=== PATIENT | female | born 1995 | race Hispanic/Latino ===

== ENCOUNTER 2018-01-15 09:55 | Emergency (ER) | payer MEDICAID, SELFPAY | END 2018-01-15 12:03 | disposition home or self-care (01) | LOC: ERS 09:55 | DX: H10.9 Unspecified conjunctivitis (principal) | CPT/HCPCS: 99282 ==

== ENCOUNTER 2020-05-03 11:10 | Inpatient (IN) | payer OTHER, SELFPAY ==
[2020-05-03] MEDS ORDERED: Ondansetron PF 4 MG/2 ML Vial ONE (11:38)
[2020-05-03] MEDS ORDERED: cefTRIAXone\\ROCEPHIN 2 GM VIAL ONE (11:38)
[2020-05-03] MEDS ORDERED: Ketorolac Tromethamine 30 MG/ML VIAL ONE (11:38)
[2020-05-03 11:57] LABS: #Lymphocytes 1.2 thou/uL (1.20-3.40); #Monocytes 1.2 thou/uL (0.11-0.59); #Neutrophils 13.9 thou/uL (1.40-6.50); %Basophils 0.2 % (0.0-1.0); %Eosinophils 0.2 % (0.0-10.0); %Lymphocytes 7.5 % (21.0-51.0); %Monocytes 7.4 % (0.0-10.0); %Neutrophils 84.8 % (42.0-75.0); Hemoglobin 14.4 g/dL (12.0-16.0); Mean Corpuscular HGB CONC 34.5 g/dL (32.0-36.0); Mean Corpuscular Hemoglobin 32.7 pg (27.0-31.0); Mean Corpuscular Volume 94.6 fL (78.0-98.0); Mean Platelet Volume 7.8 fL (7.4-10.4); Platelet Count 239 thou/uL (130-400); RBC Distribution Width 11.2 % (11.5-14.5); White Blood Cell (WBC) Count 16.3 thou/uL (4.8-10.8)
[2020-05-03] MEDS ORDERED: Iopamidol-370 76% 500 ML 1 ML ONE (12:03)
--- NOTE | 2020-05-03 12:04 | RAD ---
PORTABLE CHEST 1 VIEW: Date: 05/03/2020 Time: 1148 hours HISTORY: Fever. FINDINGS: The heart size is normal. The lungs are well expanded without lobar consolidation, pneumothoraces, or pleural effusions. IMPRESSION: No acute process. POS: AH
[2020-05-03 12:18] LABS: ALT (SGPT) 13 U/L (8-55); AST (SGOT) 11 U/L (5-34); Albumin 4.3 g/dL (3.5-5.0); Alkaline Phosphatase 82 U/L (40-110); Anion Gap 14 mmol/L (10-20); BUN (Urea Nitrogen) 4 mg/dL (7.0-18.7); Bilirubin, Total 1.2 mg/dL (0.2-1.2); Calc. Creatinine Clearance 0 mL/min (70-130); Carbon Dioxide 22 mmol/L (22-29); Chloride 100 mmol/L (98-107); Estimated GFR-MDRD Greater than 90; Globulin 3.2 g/dL (2.4-3.5); Glucose 126 mg/dL (70-105); Potassium 3.4 mmol/L (3.5-5.1); Protein, Total 7.5 g/dL (6.0-8.3); Sodium 133 mmol/L (136-145)
[2020-05-03] MEDS ORDERED: Acetaminophen 500 MG TAB ONE (12:54)
[2020-05-03 13:22] LABS: Bacteria/HPF None Seen HPF (None Seen); Bilirubin Negative (Negative); Blood, Urine Trace (Negative); Clarity Clear (Clear); Glucose, Urine (Dipstick) Normal (Negative); Ketone, Urine 40 mg/dL (Negative); Leukocyte Negative Leu/uL (Negative); Nitrite Negative (Negative); Protein, Urine (Dipstick) Negative (Neg-Trace); Specific Gravity, Urine 1.005 (1.002-1.036); Squamous Epithelial 0-3 HPF (0-3); Urobilinogen Normal mg/dL (Less than 2); pH, Urine 6.5 (5.0-9.0)
[2020-05-03 13:50] LABS: Pregnancy Test - Urine (BHCG) Negative (Negative); Pregu Control Background? CLEAR/WHITE (CLR/WHITE); Pregu Control Bar Appear? YES (CONTROL BAR); Specific Gravity 1.005 (1.002-1.036)
--- NOTE | 2020-05-03 15:14 | CT ---
CT abdomen and pelvis with IV contrast HISTORY: Urinary tract infection. Flank pain. FINDINGS: The lung bases are clear. At the anterior cortex of the superior pole right kidney is an ov al, somewhat poorly marginated area of decreased density with a masslike appearance. It measures up to 3.9 cm length by 3.1 cm x 2.9 cm width and depth. There is subtle stranding in the fat immediately surrounding the right kidney. No hydronephrosis. The liver, spleen, left kidney, adrenal glands, and pancreas have a normal CT appearance. Urinary bernie dder is decompressed. No enlarged lymph nodes or free fluid. IMPRESSION : Lobar nephronia (acute focal inflammation) at the superior pole of the right kidney. No extension int o the renal collecting system evident.
[2020-05-03 16:33] LABS: SARS-CoV-2 NAA Rapid Test Not Detected (NotDetected)
[2020-05-03] MEDS ORDERED: Ondansetron PF 4 MG/2 ML Vial IVP PRN (16:41)
[2020-05-03] MEDS ORDERED: Morphine 4 MG/ML VIAL SLOW IVP PRN (16:43)
[2020-05-03] MEDS ORDERED: Nicotine 14 MG PATCH TD PRN (16:53)
--- NOTE | 2020-05-03 17:29 | HP ---
PRIMARY CARE PROVIDER: None. CHIEF COMPLAINT: Back pain and abdominal pain. HISTORY OF PRESENT ILLNESS: This is a 25-year-old female with no significant medical history, who presents to the emergency room complaining of worsening back and abdominal pain. The patient reports the onset of dysuria approximately a week ago. She states that 3 days ago, she had the onset of back pain, which has progressively worsened and now includes abdominal pain. It is constant, stabbing in quality, without precipitating or relieving factors, and rated 10/10 in severity prior to arrival in the ER. She reports fever starting 2 days ago, as well as nausea and vomiting, which have both progressively worsened. She states that she has been taking ibuprofen 3 [id number] tablets every 4 to 6 hours for the fevers and pain. She reports she has not been able to eat or drink much due to these symptoms. She presented to an Urgent Care yesterday with request of COVID testing, and states that they diagnosed her with pyelonephritis. She was discharged with nitrofurantoin and cephalexin, however, has been unable to keep them down due to vomiting. The patient denies any history of kidney infections. She denies any other medications taken for these symptoms. Due to the worsening nature, she presented to the emergency room today. In the ER, the patient diagnosed with sepsis and pyelonephritis, she received normal saline 3 L, Zofran 4 mg IV, ceftriaxone 2 g IV, Toradol 30 mg IV, Tylenol 1 g, and hospitalist called for admission. ALLERGIES: NO KNOWN DRUG ALLERGIES. CURRENT MEDICATIONS: 1. The patient reports hydrochlorothiazide, unknown dose, taking 1/2 tablet per day. 2. Phentermine, unknown dose, one tablet per day with a goal of weight loss. 3. Leoz-neg-jiubxbq supplements that are also intended for weight loss. 4. cephalexin three times daily - unknown dose. 5. nitrofurantoin 100 mg twice daily. PAST MEDICAL HISTORY: Denies. PAST SURGICAL HISTORY: in 2017. SOCIAL HISTORY: The patient reports that she vapes approximately 15 puffs per day, uses alcohol about a 6-pack every other day, she lives alone. She is a full code and states that her friend's mom, Key Blanca is her surrogate decision maker. FAMILY HISTORY: Negative for kidney disease. REVIEW OF SYSTEMS: Positive for headache, back and abdominal pain, nausea, vomiting, fevers. Negative for chest pain or difficulty breathing. Also positive for dysuria. All remaining review of systems are reviewed and negative. PHYSICAL EXAMINATION: VITAL SIGNS: Blood pressure 95/60, pulse 101, respirations 17, temperature 98.8 , saturations 98% on room air. GENERAL: Awake, alert, responsive, appears uncomfortable secondary to pain, but not in extreme distress. HEENT: Her pupils are equal and round. No scleral icterus. Oral mucosa is pink and moist. NECK: Supple and nontender. LYMPHATICS: No palpable cervical or supraclavicular lymphadenopathy. LUNGS: Clear to auscultation. No audible wheezing, rhonchi, or rales. HEART: Normal S1 and S2, tachycardic. No audible murmurs. ABDOMEN: Soft, present bowel sounds. Tenderness to palpation throughout the right side as well as in the right flank without palpable abnormality. SKIN: No visible rashes. NEUROLOGIC: No focal deficits. PSYCH: Appears euthymic. VASCULAR: 2+ dorsalis pedis pulses. LABORATORY DATA: Reviewed. CBC; 16.3, 14.4, 41.6, 239. Chemistry; 133, 3.4, 100, 22 , 4, 0.76, 126. Lactic acid is 1.7. Total bilirubin 1.2, AST 11, ALT 13, alkaline phosphatase 82, total protein 7.5, albumin 4.3. Urinalysis; specific gravity 1.005, present ketones, 4 to 6 red blood cells, 4 to 6 white blood cells. test negative. CT abdomen and pelvis with IV contrast shows lobar nephronia at the superior pole of the right kidney, no extension into the renal collecting system. Chest x-ray is personally reviewed, no acute process. IMPRESSION: 1. Sepsis secondary to pyelonephritis. 2. Hyponatremia consistent with hypovolemic hyponatremia secondary to nausea and vomiting associated with pyelonephritis. 3. Hypokalemia, mild. 4. Current use of weight loss medications with unknown effect. 5. Tobacco abuse. 6. Alcohol use. PLAN: 1. Admission to the hospital in inpatient status due to p.o. intolerance, need for IV antibiotics, and potential risk of multi-drug resistant bacteria as the source of infection. 2. Continuing IV fluid hydration. We will use normal saline containing potassium. Monitor electrolytes. 3. Continuing ceftriaxone. Await blood and urine culture results. 4. Treat pain with morphine and/or Tylenol. As the patient has had a CT scan with IV contrast as well as NSAIDs prior to this admission, we will hold further NSAIDs to avoid any risk of renal compromise. 5. Manage nausea with Zofran as needed. 6. Nicotine replacement as needed. 7. Holding her home outpatient medications. 8. Anticipated length of stay is at least 2 midnights. 9. DVT prophylaxis with Lovenox. 10. GI prophylaxis not indicated. 11. Code status is full. Surrogate decision maker as above. 12. Reviewed the plan of care with the patient, who demonstrates understanding and agrees. No questions or further needs at the end of evaluation. Job ID: [id number] MTDD
[2020-05-03] MEDS: Acetaminophen 325 MG TAB PO PRN (18:25)
[2020-05-03] MEDS: NS 0.9% w/ 20 MEQ KCL 1,000 ML/1,000 ML BAG IV SCH (18:25)
[2020-05-03 19:54] VITALS: BMI 35.7
[2020-05-03] MEDS: Morphine 2 MG/ML VIAL SLOW IVP PRN (22:44)
[2020-05-04] MEDS: Acetaminophen 325 MG TAB PO PRN ×2 (00:45→08:36)
[2020-05-04] MEDS: NS 0.9% w/ 20 MEQ KCL 1,000 ML/1,000 ML BAG IV SCH ×3 (03:58→18:17)
[2020-05-04] MEDS: Morphine 2 MG/ML VIAL SLOW IVP PRN (06:46)
[2020-05-04] MEDS ORDERED: HYDROcodone/Acetaminophen 5/325 mg Tablet PO PRN (08:32)
--- NOTE | 2020-05-04 08:34 | PDOC.HOSPP ---
- Subjective Encounter Date: 05/04/20 (f/u sepsis) Encounter Time: 08:33 Subjective: Pt reports she continues to have pain - currently 04/19, was 07/20 prior to pain medication. She denies any n/v. She c/o left ear pain. - Objective Vital Signs & Weight: Vital Signs (12 hours) Temp Pulse Resp BP BP Pulse Ox 05/04/20 06:58 100.1 F H 122 H 18 117/70 98 05/04/20 04:00 98.9 F 114 H 18 105/72 100 05/04/20 02:00 99.8 F H 05/04/20 00:00 102.7 F H 110 H 18 106/66 97 05/03/20 20:44 97.8 F 112 H 16 104/64 99 Weight Weight 183 lb 3.266 oz I&O: 05/03/20 05/04/20 05/05/20 06:59 06:59 06:59 Intake Total 1999 Balance 1999 Result Diagrams: 05/04/20 06:39 05/04/20 06:39 Hospitalist ROS - Medication Medications: Active Medications Generic Name Dose Route Start Last Admin Trade Name Freq PRN Reason Stop Dose Admin Acetaminophen 650 mg 05/03/20 16:41 05/04/20 00:45 Tylenol PO 650 mg Q6H PRN Administration Headache/Fever/Mild Pain (1-3) Potassium Chloride/Sodium Chloride 1,000 ml in 1,000 mls @ 100 mls/hr 16:45 05/04/20 03:58 Ns 0.9% W/ 20 Meq Kcl IV 1,000 mls .Q10H REDD Administration Morphine Sulfate 2 mg 05/03/20 16:43 05/04/20 06:46 Morphine SLOW IVP 2 mg Q4H PRN Administration Mild-Moderate Pain (1-5) Nicotine 14 mg 05/03/20 16:53 05/03/20 22:52 Nicoderm Patch TD 14 mg Q24H PRN Administration Smoking Cessation Ondansetron HCl 4 mg 05/03/20 16:41 05/03/20 22:52 Zofran IVP 4 mg Q6H PRN Administration Nausea/Vomiting - Exam General Appearance: NAD Heart: RRR, no murmur Respiratory: CTAB, no wheezes, no rales, no ronchi Gastrointestinal: soft, non-tender, non-distended, normal bowel sounds Gastrointestinal - other findings: no tenderness with light palpation Extremities: no cyanosis, no clubbing, no edema Psychiatric: normal affect Hosp A/P (1) Sepsis Code(s): A41.9 - SEPSIS, UNSPECIFIED ORGANISM Status: Acute (2) Pyelonephritis Code(s): N12 - TUBULO-INTERSTITIAL NEPHRITIS, NOT SPCF ACUTE OR CHRONIC Status: Acute (3) Tobacco abuse Code(s): Z72.0 - TOBACCO USE Status: Acute - Plan Sepsis/pyelo - pt reports good UOP - will slow IVF - continue Rocephin and follow cx - add oral options for pain control in addition to morphine Replace potassium Ear pain - nursing staff looking for otoscope so that I may evaluate dvt prophy- lovenox gi prophy - not indicated code status full anticipated length of stay another 2-3 days for IV antibiotics, monitor fever curve and ensure fevers resolve, and to make sure pt is adequately tolerating oral medication and PO pt remains at high risk in current condition reviewed plan of care with patient, no questions or further needs at end of eval. Addendum - both ear canals and tympanic membranes evaluated and normal in appearance, no signs of infection.
[2020-05-04] MEDS: Enoxaparin Sodium 40 MG/0.4 ML SYRINGE SC SCH (08:36)
[2020-05-04 09:20] LABS: #Lymphocytes 1.6 thou/uL (1.20-3.40); #Monocytes 1.4 thou/uL (0.11-0.59); #Neutrophils 10.1 thou/uL (1.40-6.50); %Basophils 0.3 % (0.0-1.0); %Eosinophils 0.3 % (0.0-10.0); %Lymphocytes 12.3 % (21.0-51.0); %Monocytes 10.3 % (0.0-10.0); %Neutrophils 76.8 % (42.0-75.0); Mean Corpuscular HGB CONC 33.2 g/dL (32.0-36.0); Mean Corpuscular Hemoglobin 31.4 pg (27.0-31.0); Mean Corpuscular Volume 94.7 fL (78.0-98.0); Mean Platelet Volume 8.9 fL (7.4-10.4); Platelet Count 216 thou/uL (130-400); RBC Distribution Width 11.3 % (11.5-14.5); White Blood Cell (WBC) Count 13.1 thou/uL (4.8-10.8)
[2020-05-04 09:30] LABS: Anion Gap 11 mmol/L (10-20); BUN (Urea Nitrogen) Less than 4 mg/dL (7.0-18.7); Calc. Creatinine Clearance 205 mL/min (70-130); Calcium 7.8 mg/dL (7.8-10.44); Carbon Dioxide 20 mmol/L (22-29); Chloride 108 mmol/L (98-107); Estimated GFR-MDRD Greater than 90; Glucose 141 mg/dL (70-105); Potassium 3.3 mmol/L (3.5-5.1); Sodium 136 mmol/L (136-145)
[2020-05-04] MEDS: cefTRIAXone\\ROCEPHIN 2 GM in Sodium Chloride 0.9% 100 ML IVPB SCH (10:37)
[2020-05-04] MEDS ORDERED: Potassium Chloride 20 MEQ TAB PO SCH (11:45)
[2020-05-04] MEDS: HYDROcodone/Acetaminophen 5/325 mg Tablet PO PRN (15:26)
[2020-05-05] MEDS: HYDROcodone/Acetaminophen 5/325 mg Tablet PO PRN (03:40)
[2020-05-05] MEDS: NS 0.9% w/ 20 MEQ KCL 1,000 ML/1,000 ML BAG IV SCH (04:31)
[2020-05-05 06:58] LABS: #Eosinphils 0.1 thou/uL (0.0-0.7); #Lymphocytes 2.9 thou/uL (1.20-3.40); #Monocytes 0.8 thou/uL (0.11-0.59); #Neutrophils 5.5 thou/uL (1.40-6.50); %Basophils 0.5 % (0.0-1.0); %Eosinophils 0.8 % (0.0-10.0); %Lymphocytes 30.8 % (21.0-51.0); %Monocytes 8.9 % (0.0-10.0); Hemoglobin 11.7 g/dL (12.0-16.0); Mean Corpuscular HGB CONC 34.5 g/dL (32.0-36.0); Mean Corpuscular Hemoglobin 32.4 pg (27.0-31.0); Mean Corpuscular Volume 93.9 fL (78.0-98.0); Mean Platelet Volume 7.5 fL (7.4-10.4); Platelet Count 258 thou/uL (130-400); RBC Distribution Width 11.4 % (11.5-14.5); Red Blood Cell (RBC) Count 3.61 mill/uL (4.20-5.40); White Blood Cell (WBC) Count 9.3 thou/uL (4.8-10.8)
[2020-05-05 07:17] LABS: Anion Gap 9 mmol/L (10-20); BUN (Urea Nitrogen) Less than 4 mg/dL (7.0-18.7); Calc. Creatinine Clearance 201 mL/min (70-130); Calcium 8.2 mg/dL (7.8-10.44); Carbon Dioxide 22 mmol/L (22-29); Chloride 108 mmol/L (98-107); Estimated GFR-MDRD Greater than 90; Glucose 97 mg/dL (70-105); Potassium 3.4 mmol/L (3.5-5.1); Sodium 136 mmol/L (136-145)
[2020-05-05] MEDS: Enoxaparin Sodium 40 MG/0.4 ML SYRINGE SC SCH (08:17)
--- NOTE | 2020-05-05 11:29 | PDOC.HOSPP ---
- Subjective Encounter Date: 05/05/20 (f/u sepsis) Encounter Time: 11:26 Subjective: Pt reports feeling better - pain now 2/10 and cramping in intensity. Denies n/ v. Some diarrhea. Is reporting some chest soreness, and had sweating overnight. - Objective Vital Signs & Weight: Vital Signs (12 hours) Temp Pulse Resp BP BP Pulse Ox 05/05/20 11:03 98.6 F 102 H 20 90/62 98 05/05/20 07:17 98.5 F 92 20 109/71 96 05/05/20 03:31 99 F 112 H 20 121/79 100 05/05/20 00:00 99.1 F 112 H 20 90/60 97 Weight Weight 183 lb 3.266 oz I&O: 05/04/20 05/05/20 05/06/20 06:59 06:59 06:59 Intake Total 1999 3950 Balance 1999 3950 Result Diagrams: 05/05/20 06:39 05/05/20 06:39 Hospitalist ROS - Medication Medications: Active Medications Generic Name Dose Route Start Last Admin Trade Name Freq PRN Reason Stop Dose Admin Acetaminophen 650 mg 05/03/20 16:41 05/04/20 08:36 Tylenol PO 650 mg Q6H PRN Administration Headache/Fever/Mild Pain (1-3) Hydrocodone Bitart/Acetaminophen 1 tab 05/04/20 08:32 05/05/20 03:40 [place] 5/325 PO 1 tab Q6H PRN Administration Mild-Moderate Pain (1-5) Enoxaparin Sodium 40 mg 05/04/20 09:00 05/05/20 08:17 Lovenox SC 40 mg 0900 REDD Administration Ceftriaxone Sodium 2 gm/ 100 mls @ 200 mls/hr 05/04/20 11:00 05/04/20 10:37 Sodium Chloride IVPB 100 mls Q24HR REDD Administration Nicotine 14 mg 05/03/20 16:53 05/03/20 22:52 Nicoderm Patch TD 14 mg Q24H PRN Administration Smoking Cessation Ondansetron HCl 4 mg 05/03/20 16:41 05/03/20 22:52 Zofran IVP 4 mg Q6H PRN Administration Nausea/Vomiting - Exam General Appearance: NAD Heart: RRR, no murmur Respiratory: CTAB, no wheezes, no rales, no ronchi Gastrointestinal: soft, non-distended, normal bowel sounds Gastrointestinal - other findings: mild ttp along right side - no palp abnormalities and no r/g Extremities: no cyanosis, no clubbing, no edema Psychiatric: normal affect Hosp A/P (1) Sepsis Code(s): A41.9 - SEPSIS, UNSPECIFIED ORGANISM Status: Acute (2) Pyelonephritis Code(s): N12 - TUBULO-INTERSTITIAL NEPHRITIS, NOT SPCF ACUTE OR CHRONIC Status: Acute (3) Tobacco abuse Code(s): Z72.0 - TOBACCO USE Status: Acute - Plan Overall significant improvement in pain, WBC count, and fever curve. Given findings on CT scan - goal is to ensure pt is fever free prior to discharge. Continue ceftriaxone - urine cx without growth and blood cx negative. Will plan on change to FQ at discharge to complete tx for pyelo - 2 weeks total of abx. d/c IVF if afebrile today/tonight, anticipate d/c tomorrow. Pt is uninsured - discussed abx pricing anticipated - she states it is affordable. dvt prophy - ambulatory -will d/c lovenox gi prophy - not indicated code status full reviewed plan of care with patient, no questions or further needs at end of eval
[2020-05-05] MEDS ORDERED: Potassium Chloride 20 MEQ TAB PO SCH (11:30)
[2020-05-05] MEDS: cefTRIAXone\\ROCEPHIN 2 GM in Sodium Chloride 0.9% 100 ML IVPB SCH (11:47)
[2020-05-06 07:21] VITALS: BP 115/77; TEMP 98.2
[2020-05-06] MEDS: cefTRIAXone\\ROCEPHIN 2 GM in Sodium Chloride 0.9% 100 ML IVPB SCH (09:11)
--- NOTE | 2020-05-06 10:57 | DIS ---
DATE OF ADMISSION: 05/03/2020 DATE OF DISCHARGE: 05/06/2020 MEDICATIONS AT DISCHARGE: New medications: 1. Ciprofloxacin 500 mg p.o. b.i.d. for 10 days starting tomorrow. 2. Tylenol 650 mg every 6 hours as needed for pain. 3. Ibuprofen 200 mg every 4 hours as needed for pain. Medications discontinued: All home medications for now to include antibiotics recently prescribed in the outpatient setting of [facility]. The patient's usual medications: 1. Phentermine. 2. Hydrochlorothiazide. Recommend the patient follow up with the primary care provider within the next week to determine when to resume these medications. FINAL DIAGNOSES: 1. Acute pyelonephritis. 2. Sepsis secondary to above. SECONDARY DIAGNOSES: 1. Tobacco abuse. 2. Obesity. HISTORY OF PRESENT ILLNESS: Ms. Norman is a 25-year-old female who presented to the emergency room with a complaint of fevers, chills, nausea, vomiting, back pain, abdominal pain who had progressively worsened over the prior 3 days. She was diagnosed with a kidney infection in an Urgent Care, however, was unable to tolerate the medications. She presented due to worsening and was admitted for pyelonephritis. HOSPITAL COURSE: The patient was managed on IV Rocephin and she has received 4 doses of this medication, IV and oral pain medications, as well as nausea medicines. She has significantly improved with all of these medications. She has required very little pain medication over the past 24 hours and has been afebrile. She has not experienced nausea or vomiting since admission. Of note, her urine culture and blood cultures are negative at time of discharge. I therefore am treating her empirically for pyelonephritis and changing over to ciprofloxacin at discharge. We discussed the risks and benefits of this medication, and to seek care early if she is noticing any change such as a return of fevers, dysuria, abdominal pain, or any other concerns. She will need to be re-evaluated with consideration to change antibiotics, as we have no bacteria to be able to tailor the antibiotics for this infection. The patient overall doing very well and does meet criteria for discharge to home. All of her usual home medications are discontinued - to be resumed as directed by her Primary Care physician. PHYSICAL EXAMINATION: VITAL SIGNS: Temperature 98.2, pulse 88, respirations 18, saturations 99% on room air, blood pressure 115/77. GENERAL: Awake, alert, responsive, in no apparent distress. Able to speak in full sentences. LUNGS: Clear to auscultation bilateral. HEART: Normal S1 and S2. Regular rate and rhythm. No significant murmur. ABDOMEN: Soft. Present bowel sounds. Nontender, nondistended. EXTREMITIES: No edema. LABORATORY DATA: The findings and test results. CBC on May 05; WBC 9.3, hemoglobin 11.7, hematocrit 33.9, platelets 258 with a white blood cell count of 16.3 on May 03. Renal panel; 136, 3.4, 108, 22, less than 4, 0.57, 97 on May 05. LFTs on May 03; t bilirubin 1.2, AST 11, ALT 13, alkaline phosphatase 82, total protein 7.5, albumin 4.3. Urinalysis on admission, specific gravity 1.005, present ketones, trace blood, 4 to 6 red blood cells, 4 to 6 white blood cells. COVID test negative. Blood and urine cultures negative at discharge. Abdomen and pelvis CT scan on May 03 shows acute focal inflammation of the superior pole of the right kidney. No extension into the renal collecting system. Chest x-ray on May 03, no acute process. DIET: Regular. ACTIVITY: As tolerated. FOLLOWUP: Is recommended with a primary care provider this week to re-evaluate how the patient is doing, tolerance of antibiotics, and address any other health needs or concerns. Reviewed with the patient this hospitalization, the importance of followup, early detection of urinary tract infections in the future, and seek care precautions. She demonstrates understanding. TIME SPENT: Total time coordinating discharge is 30 minutes. Job ID: [id number] [facility]
== END 2020-05-06 10:19 | disposition home or self-care (01) | DRG 872 ==
LOC: ERS 11:10 → T4-B 15:39
PROVIDERS: ADMIT Family Medicine; ATTEND Family Medicine
DX: A41.9 Sepsis, unspecified organism (principal); N10 Acute pyelonephritis; E66.9 Obesity, unspecified; Z20.828 Contact with and (suspected) exposure to other viral communicable diseases; F17.290 Nicotine dependence, other tobacco product, uncomplicated; E86.1 Hypovolemia; E87.6 Hypokalemia; F10.10 Alcohol abuse, uncomplicated; Z68.35 Body mass index [BMI] 35.0-35.9, adult; Z79.899 Other long term (current) drug therapy
CPT/HCPCS: 36415; 71045; 74177; 80048; 80053; 81003; 81015; 81025; 83605; 85025; 87040; 87086; 96361; 96365; 96374; 96375; J0696; J1650; J1885; J2270; J2405; J3480; J3490; Q9967; U0002